=== PATIENT | male | born 1965 | race Caucasian/White ===

== ENCOUNTER → 2018-06-16 | Emergency (ER) | payer MEDICAID ==
[~2018-06-16] VITALS: Ht 175.3 cm; Wt 81.8 kg
[~2018-06-16] MED LIST: LOPE2CAP PO; ONDA4TAB6 PO; PRED20TA PO; medical marijuana
[2018-06-16 17:06] VITALS: BP 119/78
[2018-06-16 18:37] LABS: BASOPHILS % (AUTO) 0.3 % (0-1); EOSINOPHILS # (AUTO) 0.1 X10'3 (0-0.9); EOSINOPHILS % (AUTO) 1.6 % (0-6); HEMATOCRIT 40.7 % (42.0-52.0); LYMPHOCYTES # (AUTO) 3.1 X10'3 (1.1-4.8); LYMPHOCYTES % (AUTO) 42.5 % (21-51); MEAN CORPUSCULAR HEMOGLOBIN 31.8 PG (27.0-31.0); MEAN CORPUSCULAR HGB CONC 34.4 g/dL (33.0-36.5); MEAN CORPUSCULAR VOLUME 92.4 FL (78-98); MEAN PLATELET VOLUME 8.8 FL (7.4-10.4); MONOCYTES # (AUTO) 0.5 X10'3 (0-0.9); MONOCYTES % (AUTO) 6.8 % (2-12); NEUTROPHILS # (AUTO) 3.6 X10'3 (1.8-7.7); NEUTROPHILS % (AUTO) 48.8 % (42-75); PLATELET COUNT 201 X10'3 (140-440); RED BLOOD COUNT 4.41 X10'6 (4.70-6.10); RED CELL DISTRIBUTION WIDTH 12.7 % (11.5-14.5); WHITE BLOOD COUNT 7.4 X10'3 (4.5-11.0)
[2018-06-16 18:51] LABS: ALANINE AMINOTRANSFERASE 42 U/L (12-78); ALBUMIN 3.8 G/DL (3.4-5.0); ALBUMIN/GLOBULIN RATIO 1.1 (1.1-1.5); ALKALINE PHOSPHATASE 89 IU/L (46-116); ANION GAP 10 (8-16); ASPARTATE AMINO TRANSFERASE 22 U/L (10-37); BILIRUBIN,TOTAL 0.5 MG/DL (0.1-1.0); BLOOD UREA NITROGEN 18 MG/DL (7-18); BUN/CREATININE RATIO 19.6 (5.4-32.0); CALCIUM 8.8 MG/DL (8.5-10.1); CHLORIDE 104 MMOL/L (99-107); CREATININE 0.92 MG/DL (0.60-1.10); GLUCOSE 94 MG/DL (70-104); POTASSIUM 4.1 MMOL/L (3.5-5.1); SODIUM 140 MMOL/L (135-145); TOTAL CARBON DIOXIDE 26.3 MMOL/L (24-32); TOTAL PROTEIN 7.3 G/DL (6.4-8.2); eGFR 86 ML/MIN
== END | disposition home or self-care (01) ==
LOC: ER 16:38
DX: K92.1 Melena (principal); R42 Dizziness and giddiness; R10.84 Generalized abdominal pain; J45.909 Unspecified asthma, uncomplicated; G89.29 Other chronic pain; F12.90 Cannabis use, unspecified, uncomplicated; Z88.5 Allergy status to narcotic agent; Z79.899 Other long term (current) drug therapy
CPT/HCPCS: 36415; 80053; 85025; 99283

== ENCOUNTER 2018-08-13 14:58 | Emergency (ER) | payer MEDICAID ==
[~2018-08-13] VITALS: Ht 182.9 cm; Wt 68.2 kg
[~2018-08-13 14:58] MED LIST changes: -PRED20TA PO
[2018-08-13 15:37] LABS: BASOPHILS % (AUTO) 0.3 % (0-1); EOSINOPHILS # (AUTO) 0.1 X10'3 (0-0.9); EOSINOPHILS % (AUTO) 1.5 % (0-6); HEMOGLOBIN 12.4 g/dl (14.0-17.9); LYMPHOCYTES # (AUTO) 2.6 X10'3 (1.1-4.8); LYMPHOCYTES % (AUTO) 33.8 % (21-51); MEAN CORPUSCULAR HEMOGLOBIN 30.7 PG (27.0-31.0); MEAN CORPUSCULAR HGB CONC 34.4 g/dL (33.0-36.5); MEAN CORPUSCULAR VOLUME 89.4 FL (78-98); MEAN PLATELET VOLUME 8.1 FL (7.4-10.4); MONOCYTES # (AUTO) 0.4 X10'3 (0-0.9); NEUTROPHILS # (AUTO) 4.5 X10'3 (1.8-7.7); NEUTROPHILS % (AUTO) 59.4 % (42-75); PLATELET COUNT 346 X10'3 (140-440); RED BLOOD COUNT 4.02 X10'6 (4.70-6.10); RED CELL DISTRIBUTION WIDTH 12.8 % (11.5-14.5); WHITE BLOOD COUNT 7.6 X10'3 (4.5-11.0)
[2018-08-13 15:44] LABS: CLARITY,URINE CLOUDY (Clear); COLOR,URINE YELLOW (Yellow); GLUCOSE, URINE NEGATIVE (Neg); KETONES,URINE NEGATIVE (Neg); LEUKOCYTE ESTERASE ,URINE TRACE (Neg); NITRITES, URINE POSITIVE (Neg); OCCULT BLOOD,URINE LARGE (Neg); PH,URINE 5.5 (4.8-8.0); PROTEIN,URINE 100 mg/dl (Neg); UROBILINOGEN,URINE 0.2 E.U/dL (0.2-1.0)
[2018-08-13 15:51] LABS: ALANINE AMINOTRANSFERASE 81 U/L (12-78); ALBUMIN 3.4 G/DL (3.4-5.0); ALBUMIN/GLOBULIN RATIO 0.8 (1.1-1.5); ALKALINE PHOSPHATASE 155 IU/L (46-116); ANION GAP 7 (8-16); ASPARTATE AMINO TRANSFERASE 28 U/L (10-37); BILIRUBIN,TOTAL 0.3 MG/DL (0.1-1.0); BLOOD UREA NITROGEN 18 MG/DL (7-18); BUN/CREATININE RATIO 21.4 (5.4-32.0); CALCIUM 9.4 MG/DL (8.5-10.1); CHLORIDE 104 MMOL/L (99-107); CREATININE 0.84 MG/DL (0.60-1.10); GLUCOSE 95 MG/DL (70-104); POTASSIUM 4.1 MMOL/L (3.5-5.1); SODIUM 139 MMOL/L (135-145); TOTAL PROTEIN 7.6 G/DL (6.4-8.2); eGFR > 90 ML/MIN
[2018-08-13 15:51] LABS: UA COLLECTION TYPE OTHER
[2018-08-13 15:52] LABS: BACTERIA,URINE NONE SEEN /HPF (Neg); RBC,URINE 20-50 /HPF (0-2)
[2018-08-13 15:53] LABS: MUCUS STRANDS FEW /LPF (Neg); SQUAMOUS EPITHELIAL CELL,UR NONE SEEN /LPF (FEW); URIC ACID CRYSTALS 1+ /HPF (NEGATIVE); YEAST MANY /HPF (NEGATIVE)
[2018-08-13] MEDS ORDERED: SULF1TAB49 PO (16:55)
[2018-08-13 17:15] VITALS: BP 104/58
== END 2018-08-13 17:18 | disposition home or self-care (01) ==
LOC: ER 14:59
DX: K91.89 Other postprocedural complications and disorders of digestive system (principal); K63.0 Abscess of intestine; N39.0 Urinary tract infection, site not specified; J45.909 Unspecified asthma, uncomplicated; G89.29 Other chronic pain; F12.90 Cannabis use, unspecified, uncomplicated; Z98.890 Other specified postprocedural states; Z88.5 Allergy status to narcotic agent; Z79.899 Other long term (current) drug therapy; Z86.73 Personal history of transient ischemic attack (TIA), and cerebral infarction without residual deficits
CPT/HCPCS: 36415; 80053; 81001; 85025; 87088; 99284

== ENCOUNTER 2018-10-14 11:10 | Day surgery (SDC) | payer MEDICAID ==
[~2018-10-14] VITALS: Ht 175.3 cm; Wt 66.9 kg
[2018-10-14] MEDS ORDERED: HYDR-3972 PO (11:42)
[2018-10-14] MEDS ORDERED: CIPR500T5 PO (11:42)
[2018-10-14] MEDS ORDERED: FLUO1VIA8 IV (11:42)
[2018-10-14 11:44] VITALS: BP 121/58
[2018-10-14] MEDS ORDERED: HYDROcodone/acetaminophen 10/325mg tab PO ONE (13:55)
[2018-10-14] MEDS ORDERED: iohexol 300 MG/1 ML 50ml polymer ONE (15:00)
[2018-10-14] MEDS ORDERED: heparin sodium, porcine/PF 100unit/ml 5ML syringe ONE (15:17)
[2018-10-14 15:25] VITALS: BP 120/60
== END 2018-10-14 15:55 | disposition home or self-care (01) ==
LOC: SSTAY O 11:10
PROVIDERS: ATTEND Radiology Diagnostic Radiology
DX: T82.9XXA Unspecified complication of cardiac and vascular prosthetic device, implant and graft, initial encounter (principal); C20 Malignant neoplasm of rectum; F31.9 Bipolar disorder, unspecified; F41.9 Anxiety disorder, unspecified; Z98.890 Other specified postprocedural states; Z79.899 Other long term (current) drug therapy
CPT/HCPCS: 76000; J1642; Q9967

== ENCOUNTER 2019-05-16 20:20 | Inpatient (IN) | payer MEDICAID ==
[~2019-05-16] VITALS: Ht 175.3 cm; Wt 74.1 kg
[~2019-05-16 20:20] MED LIST changes: +CIPR500T5 PO; +FLUO1VIA8 IV; +HYDR-3972 PO; -LOPE2CAP PO; -ONDA4TAB6 PO; -medical marijuana
[2019-05-16 21:18] LABS: BASOPHILS % (AUTO) 0.4 % (0-1); EOSINOPHILS # (AUTO) 0.2 X10'3 (0-0.9); EOSINOPHILS % (AUTO) 3.1 % (0-6); LYMPHOCYTES # (AUTO) 0.9 X10'3 (1.1-4.8); LYMPHOCYTES % (AUTO) 17.5 % (21-51); MEAN CORPUSCULAR HEMOGLOBIN 31.4 PG (27.0-31.0); MEAN CORPUSCULAR HGB CONC 34.1 g/dL (33.0-36.5); MEAN CORPUSCULAR VOLUME 92.1 FL (78-98); MEAN PLATELET VOLUME 7.7 FL (7.4-10.4); MONOCYTES # (AUTO) 0.5 X10'3 (0-0.9); MONOCYTES % (AUTO) 9.6 % (2-12); NEUTROPHILS # (AUTO) 3.8 X10'3 (1.8-7.7); NEUTROPHILS % (AUTO) 69.4 % (42-75); PLATELET COUNT 228 X10'3 (140-440); RED BLOOD COUNT 4.13 X10'6 (4.70-6.10); RED CELL DISTRIBUTION WIDTH 13.8 % (11.5-14.5); WHITE BLOOD COUNT 5.4 X10'3 (4.5-11.0)
[2019-05-16 21:30] LABS: ALANINE AMINOTRANSFERASE 40 U/L (12-78); ALBUMIN 3.6 G/DL (3.4-5.0); ALKALINE PHOSPHATASE 125 IU/L (46-116); ANION GAP 9 (8-16); ASPARTATE AMINO TRANSFERASE 31 U/L (10-37); BILIRUBIN,TOTAL 0.6 MG/DL (0.1-1.0); BLOOD UREA NITROGEN 14 MG/DL (7-18); BUN/CREATININE RATIO 13.1 (5.4-32.0); CALCIUM 8.6 MG/DL (8.5-10.1); CHLORIDE 105 MMOL/L (99-107); CREATININE 1.07 MG/DL (0.60-1.10); GLUCOSE 94 MG/DL (70-104); LIPASE 522 U/L (73-393); POTASSIUM 3.9 MMOL/L (3.5-5.1); SODIUM 140 MMOL/L (135-145); TOTAL CARBON DIOXIDE 25.7 MMOL/L (24-32); TOTAL PROTEIN 7.2 G/DL (6.4-8.2); eGFR 72 ML/MIN
--- NOTE | 2019-05-16 23:20 | NUR ---
Phoned [facility], ICU and spoke with the charge nurse regarding the need to collect urine from the nephrostomy tube. The urine in the collection bag is contaminated and will need a new collection bag. The urine leg bags available in the ED will not connect to the patient's nephrostomy tube. AMOS Kerns is going to the basement to attempt to locate the correct specimen drainage bag with the lure lock connection for the nephrostomy tube.
[2019-05-16] MEDS ORDERED: PEG 3350/Na sulf,bicarb,Cl/KCl oral sol 4 liter bottle PO ONE (23:25)
[2019-05-16] MEDS ORDERED: IBUP-1984 PO (23:44)
[2019-05-16] MEDS ORDERED: OXYC10TA47 (23:44)
[2019-05-17] VITALS (15 sets, daily range): BP systolic 110–147; BP diastolic 60–80
--- NOTE | 2019-05-17 00:13 | NUR ---
Jess solis in [facility] - 05/17/19 at 0013 by MARCELLA ULTRA SOUND AT BEDSIDE
[2019-05-17] MEDS ORDERED: potassium CL 10mEq/100ml bag 100 ML IV PRN ×2 (00:50)
[2019-05-17] MEDS ORDERED: magnesium 2GM in 50ml NS 50 ML IV PRN (00:50)
[2019-05-17] MEDS ORDERED: magnesium 4gm in 100ml NS 100 ML IV PRN (00:50)
[2019-05-17] MEDS ORDERED: acetaminophen 325mg tablet PO PRN (00:50)
[2019-05-17] MEDS ORDERED: HYDROmorphone inj. 0.5 MG/0.5 ML DISP.SYRIN IV PRN ×3 (00:50→17:55)
[2019-05-17] MEDS ORDERED: mag hydrox/Alum hydrox/simeth 30ml oral suspension PO PRN (00:50)
[2019-05-17] MEDS ORDERED: potassium Cl 20 mEq SR tablet PO PRN ×2 (00:50)
[2019-05-17 01:32] LABS: CLARITY,URINE CLOUDY (Clear); COLOR,URINE STRAW (Yellow); GLUCOSE, URINE NEGATIVE (Neg); KETONES,URINE NEGATIVE (Neg); LEUKOCYTE ESTERASE ,URINE LARGE (Neg); NITRITES, URINE POSITIVE (Neg); OCCULT BLOOD,URINE LARGE (Neg); PROTEIN,URINE 30 mg/dl (Neg); UROBILINOGEN,URINE 0.2 E.U/dL (0.2-1.0)
[2019-05-17 01:38] LABS: UA COLLECTION TYPE OTHER
[2019-05-17 01:40] LABS: BACTERIA,URINE FEW /HPF (Neg); WBC,URINE TNTC /HPF (0-4)
[2019-05-17 01:41] LABS: SQUAMOUS EPITHELIAL CELL,UR NONE SEEN /LPF (FEW); WBC CLUMPS,URINE FEW /HPF (NEGATIVE)
[2019-05-17] MEDS: HYDROmorphone 1 mg/ml syringe IV PRN ×5 (02:33→21:45)
[2019-05-17] MEDS: ondansetron/PF 4mg/2ml inj IV PRN ×2 (02:33→11:36)
[2019-05-17] MEDS: normal saline 1000ml 1,000 ML IV SCH ×3 (02:34→21:46)
--- NOTE | 2019-05-17 05:13 | NUR ---
Patient valuable stored in ER. Bryant arrived this morning to brass pickler.
--- NOTE | 2019-05-17 07:05 | NUR ---
Problems reprioritized. Patient report given, questions answered & plan of care reviewed with TICO. Addendum: 05/17/19 at 0706 by Buster Pleitez RN Amended: Links added.
[2019-05-17] MEDS: enoxaparin 40mg/0.4ml syringe SQ SCH (08:00)
[2019-05-17] MEDS: K and/or MAG REPLACEMENT MC SCH ×2 (08:00→20:00)
[2019-05-17] MEDS ORDERED: ceFOXitin 2 GM ADDVANTGE BAG 50 ML IV ONE (17:49)
[2019-05-17] MEDS ORDERED: ringers solution, lacted 1,000 ML IV SCH ×2 (17:51→19:33)
[2019-05-17] MEDS ORDERED: hydrALAZINE 20mg/ml inj. IV PRN (17:55)
[2019-05-17] MEDS ORDERED: ondansetron/PF 4mg/2ml inj IV PRN ×2 (17:55→19:35)
[2019-05-17] MEDS ORDERED: fentaNYL/PF 50MCG/1 ML 2ML syringe IV PRN ×2 (17:55)
[2019-05-17] MEDS ORDERED: labetalol 20mg/4ml (5mg/ml) syringe IV PRN (17:55)
[2019-05-17] MEDS ORDERED: rocuronium 10mg/ml inj IV ONE (18:03)
[2019-05-17] MEDS ORDERED: propofol inj 20 ML IV ONE (18:03)
[2019-05-17] MEDS ORDERED: LIDOcaine 2% (20mg/ml) 5ml vial ONE (18:03)
[2019-05-17] MEDS ORDERED: ondansetron/PF 4mg/2ml inj ONE (18:04)
[2019-05-17] MEDS ORDERED: glycopyrrolate 0.2mg/ml inj ONE (18:30)
[2019-05-17] MEDS ORDERED: neostigmine methylsulfate 1 MG/ML 10ml vial ONE (18:30)
[2019-05-17] MEDS ORDERED: dexamethasone sod phosphate 10mg/ml inj ONE (18:30)
[2019-05-17] MEDS ORDERED: sevoflurane 250ml liquid IH ONE (18:30)
[2019-05-17] MEDS ORDERED: midazolam 2 mg/2 ml injection ONE (18:32)
[2019-05-17] MEDS ORDERED: fentaNYL/PF 50MCG/1 ML 2ML syringe ONE (18:32)
[2019-05-17] MEDS ORDERED: BUPIVAcaine/PF 2.5 mg/ml (0.25%) 30ml vial ONE (19:14)
[2019-05-17] MEDS ORDERED: proCHLORperazine 10 MG/2 ml inj IV PRN (19:35)
[2019-05-17] MEDS ORDERED: meperidine/PF 25mg/ml syringe IV PRN ×3 (19:35)
--- NOTE | 2019-05-17 19:45 | NUR ---
Received from OR via BED , accompanied by Anesthesiologist DR ESTRADA and report given by Anesthesiolgist. PATIENT WAKING UP, DENIES PAIN, V/S WNL, NEUROVASCULAR CHECKS INTACT, 20G PIV LUE, SCD ON, UROSTOMY RIGHT SIDE CDI WITH CLEAR YELLOW URINE IN BAG AND COLOSTOMY BAG FROM PERISTOMAL REPAIR CDI WITH PINK REDISH STOMA.
--- NOTE | 2019-05-17 20:25 | NUR ---
PATIENT WAKING UP, STATES PAIN 4/10, V/S WNL, NEUROVASCULAR CHECKS INTACT, 20G PIV LUE FOUND TO BE INFILTRATED UPON ARRIVAL TO ROOM AND IVF TURNED OFF AND RECIEVING RN NOTIFIED, SCD ON, UROSTOMY RIGHT SIDE CDI WITH CLEAR YELLOW URINE IN BAG AND COLOSTOMY BAG FROM PERISTOMAL REPAIR CDI WITH PINK REDISH STOMA. PATIENT TAKEN TO 350B WITH ALL BELONGINGS AND HOOKED UP TO MONITORS IN ROOM AND REPORT GIVEN TO RN WHO HAS TAKEN OVER PATIENT CARE.
--- NOTE | 2019-05-17 23:20 | NUR ---
Pt c/o severe pain 10/10 to right side at ostomy insertion point. Attempted to ambulate with patient to resolve gas related pain from surgery, walked about 50 feet before patient began to complain about severe pain to ostomy site and no relief of pain to urostomy site. Returned patient to bed. Spoke to Dr. Mays; states site was not accessed during surgical procedure. Obtained order for dilaudid CADD, Clear liquid diet, and throat lozenge for sore throat.
[2019-05-17] MEDS ORDERED: naloxone 0.4 mg/ml inj IV PRN (23:25)
[2019-05-17] MEDS ORDERED: CADD PCA waste documentation MC PRN (23:25)
[2019-05-18] VITALS: BP 110/60
[2019-05-18] MEDS: HYDROmorphone/NS 1 mg/ml CADD 50 ML IV SCH ×8 (00:14→13:00)
[2019-05-18 00:45] VITALS: BP 112/61
[2019-05-18] MEDS: benzocaine/menthol oral lozeng 1 EACH BOX MM PRN ×4 (01:20→23:00)
--- NOTE | 2019-05-18 06:29 | NUR ---
Problems reprioritized. Patient report given, questions answered & plan of care reviewed with VINICIO Cisneros.
[2019-05-18 06:36] LABS: ALANINE AMINOTRANSFERASE 37 U/L (12-78); ALBUMIN 3.6 G/DL (3.4-5.0); ALBUMIN/GLOBULIN RATIO 0.9 (1.1-1.5); ALKALINE PHOSPHATASE 148 IU/L (46-116); ANION GAP 10 (8-16); ASPARTATE AMINO TRANSFERASE 29 U/L (10-37); BILIRUBIN,TOTAL 0.9 MG/DL (0.1-1.0); BLOOD UREA NITROGEN 15 MG/DL (7-18); BUN/CREATININE RATIO 13.6 (5.4-32.0); CHLORIDE 103 MMOL/L (99-107); GLUCOSE 126 MG/DL (70-104); MAGNESIUM 2.1 MG/DL (1.5-2.4); POTASSIUM 4.5 MMOL/L (3.5-5.1); SODIUM 137 MMOL/L (135-145); TOTAL CARBON DIOXIDE 24.4 MMOL/L (24-32); TOTAL PROTEIN 7.5 G/DL (6.4-8.2); eGFR 70 ML/MIN
[2019-05-18] MEDS: normal saline 1000ml 1,000 ML IV SCH ×2 (07:17→18:15)
[2019-05-18] MEDS: K and/or MAG REPLACEMENT MC SCH ×2 (07:32→20:00)
[2019-05-18 08:00] VITALS: BP 91/55
[2019-05-18] MEDS: enoxaparin 40mg/0.4ml syringe SQ SCH (08:00)
--- NOTE | 2019-05-18 09:45 | NUR ---
pt states [facility] Rx him Cipro several days ago to prevent infection at colostomy site. Pt states he only took 2 days worth of abx before this hospital admission. Pt concerned about getting his abx to prevent infection. Notified Dr. Reed and ordered to continue Cipro dosage. Order placed.
[2019-05-18] MEDS: ciprofloxacin 250mg tablet PO SCH ×2 (10:50→19:04)
[2019-05-18 11:40] LABS: BASOPHILS % (AUTO) 0.3 % (0-1); EOSINOPHILS % (AUTO) 0 % (0-6); HEMATOCRIT 35.9 % (42.0-52.0); HEMOGLOBIN 12.3 g/dl (14.0-17.9); LYMPHOCYTES # (AUTO) 0.6 X10'3 (1.1-4.8); MEAN CORPUSCULAR HEMOGLOBIN 31.3 PG (27.0-31.0); MEAN CORPUSCULAR HGB CONC 34.2 g/dL (33.0-36.5); MEAN CORPUSCULAR VOLUME 91.6 FL (78-98); MEAN PLATELET VOLUME 7.9 FL (7.4-10.4); MONOCYTES # (AUTO) 0.5 X10'3 (0-0.9); NEUTROPHILS # (AUTO) 6.5 X10'3 (1.8-7.7); NEUTROPHILS % (AUTO) 84.7 % (42-75); PLATELET COUNT 215 X10'3 (140-440); RED BLOOD COUNT 3.92 X10'6 (4.70-6.10); RED CELL DISTRIBUTION WIDTH 13.6 % (11.5-14.5); WHITE BLOOD COUNT 7.7 X10'3 (4.5-11.0)
[2019-05-18 12:00] VITALS: BP 111/71
[2019-05-18] MEDS: enoxaparin 30mg/0.3ml syringe SUBCUT SCH (13:25)
[2019-05-18] MEDS: oxyCODONE/APAP 10/325mg tablet PO PRN ×3 (14:18→23:27)
--- NOTE | 2019-05-18 14:26 | NUR ---
pt refusing Lovenox shots, pt aware of risks of refusal. States he will get up and walk around, SCD's in place, and pt lumping ankles and feet while in bed.
[2019-05-18] MEDS ORDERED: morphine 4 MG/ML inj SYRINge IV PRN (15:05)
[2019-05-18] MEDS ORDERED: ondansetron/PF 4mg/2ml inj IV PRN (15:05)
[2019-05-18] MEDS ORDERED: labetalol 20mg/4ml (5mg/ml) syringe IV PRN (15:05)
[2019-05-18] MEDS ORDERED: morphine 2 MG/ML inj. syringe IV PRN (15:05)
[2019-05-18] MEDS ORDERED: fentaNYL/PF 50MCG/1 ML 2ML syringe IV PRN ×2 (15:05)
[2019-05-18] MEDS ORDERED: hydrALAZINE 20mg/ml inj. IV PRN (15:05)
[2019-05-18] MEDS ORDERED: ringers solution, lacted 1,000 ML IV SCH (15:05)
[2019-05-18 19:00] VITALS: BP 109/57
[2019-05-18] MEDS: lactobacillus rhamnosus 10,000 MMU CELLS/CAPSULE PO SCH (19:04)
[2019-05-19] VITALS: BP 112/55
[2019-05-19] MEDS: benzocaine/menthol oral lozeng 1 EACH BOX MM PRN ×4 (01:09→22:16)
[2019-05-19] MEDS: normal saline 1000ml 1,000 ML IV SCH ×4 (02:49→22:10)
[2019-05-19] MEDS: oxyCODONE/APAP 10/325mg tablet PO PRN ×4 (04:58→19:02)
[2019-05-19 06:02] LABS: BASOPHILS % (AUTO) 0.2 % (0-1); EOSINOPHILS % (AUTO) 0.2 % (0-6); HEMATOCRIT 38.1 % (42.0-52.0); LYMPHOCYTES # (AUTO) 0.8 X10'3 (1.1-4.8); LYMPHOCYTES % (AUTO) 13.5 % (21-51); MEAN CORPUSCULAR HEMOGLOBIN 31.2 PG (27.0-31.0); MEAN CORPUSCULAR HGB CONC 34.1 g/dL (33.0-36.5); MEAN CORPUSCULAR VOLUME 91.4 FL (78-98); MEAN PLATELET VOLUME 8.3 FL (7.4-10.4); MONOCYTES # (AUTO) 0.5 X10'3 (0-0.9); MONOCYTES % (AUTO) 8.5 % (2-12); NEUTROPHILS # (AUTO) 4.6 X10'3 (1.8-7.7); NEUTROPHILS % (AUTO) 77.6 % (42-75); PLATELET COUNT 182 X10'3 (140-440); RED BLOOD COUNT 4.17 X10'6 (4.70-6.10); RED CELL DISTRIBUTION WIDTH 13.8 % (11.5-14.5); WHITE BLOOD COUNT 5.9 X10'3 (4.5-11.0)
[2019-05-19 06:33] LABS: ALANINE AMINOTRANSFERASE 29 U/L (12-78); ALBUMIN 3.2 G/DL (3.4-5.0); ALBUMIN/GLOBULIN RATIO 0.9 (1.1-1.5); ALKALINE PHOSPHATASE 109 IU/L (46-116); ANION GAP 7 (8-16); ASPARTATE AMINO TRANSFERASE 24 U/L (10-37); BILIRUBIN,TOTAL 0.7 MG/DL (0.1-1.0); BLOOD UREA NITROGEN 11 MG/DL (7-18); BUN/CREATININE RATIO 11.5 (5.4-32.0); CALCIUM 8.5 MG/DL (8.5-10.1); CHLORIDE 107 MMOL/L (99-107); CREATININE 0.96 MG/DL (0.60-1.10); GLUCOSE 95 MG/DL (70-104); POTASSIUM 3.8 MMOL/L (3.5-5.1); SODIUM 142 MMOL/L (135-145); TOTAL CARBON DIOXIDE 27.6 MMOL/L (24-32); TOTAL PROTEIN 6.7 G/DL (6.4-8.2); eGFR 82 ML/MIN
[2019-05-19] MEDS: K and/or MAG REPLACEMENT MC SCH ×2 (07:02→19:17)
[2019-05-19 07:09] VITALS: BP 110/55
[2019-05-19] MEDS: lactobacillus rhamnosus 10,000 MMU CELLS/CAPSULE PO SCH ×2 (07:54→19:19)
[2019-05-19] MEDS: ciprofloxacin 250mg tablet PO SCH (07:55)
[2019-05-19] MEDS: enoxaparin 30mg/0.3ml syringe SUBCUT SCH (08:00)
[2019-05-19] MEDS: levoFLOXACIN 750MG TABLET PO SCH (11:04)
[2019-05-19] MEDS: HYDROmorphone inj. 0.5 MG/0.5 ML DISP.SYRIN IV PRN ×3 (11:04→22:09)
[2019-05-19 12:00] VITALS: BP 119/60
[2019-05-19 18:00] VITALS: BP 131/74
--- NOTE | 2019-05-19 18:17 | NUR ---
Problems reprioritized. Patient report given, questions answered & plan of care reviewed with PRUDENCE RN.
--- NOTE | 2019-05-19 18:30 | NUR ---
Patient in room [facility]. I have received report from Nicole MOONEY and had the opportunity to ask questions and assume patient care. Patient is having dinner and denies having pain.
[2019-05-20 00:05] VITALS: BP 121/63
[2019-05-20] MEDS: oxyCODONE/APAP 10/325mg tablet PO PRN ×4 (01:23→18:49)
[2019-05-20] MEDS: benzocaine/menthol oral lozeng 1 EACH BOX MM PRN ×4 (01:25→21:35)
[2019-05-20] MEDS: HYDROmorphone inj. 0.5 MG/0.5 ML DISP.SYRIN IV PRN ×2 (05:48→21:35)
[2019-05-20 05:56] LABS: BASOPHILS % (AUTO) 0.1 % (0-1); EOSINOPHILS # (AUTO) 0.1 X10'3 (0-0.9); EOSINOPHILS % (AUTO) 1.1 % (0-6); HEMATOCRIT 37.2 % (42.0-52.0); HEMOGLOBIN 12.7 g/dl (14.0-17.9); LYMPHOCYTES # (AUTO) 0.7 X10'3 (1.1-4.8); LYMPHOCYTES % (AUTO) 13.9 % (21-51); MEAN CORPUSCULAR HEMOGLOBIN 31.2 PG (27.0-31.0); MEAN CORPUSCULAR HGB CONC 34.2 g/dL (33.0-36.5); MEAN CORPUSCULAR VOLUME 91.3 FL (78-98); MEAN PLATELET VOLUME 8.3 FL (7.4-10.4); MONOCYTES # (AUTO) 0.4 X10'3 (0-0.9); MONOCYTES % (AUTO) 7.5 % (2-12); NEUTROPHILS # (AUTO) 3.9 X10'3 (1.8-7.7); NEUTROPHILS % (AUTO) 77.4 % (42-75); PLATELET COUNT 174 X10'3 (140-440); RED BLOOD COUNT 4.08 X10'6 (4.70-6.10); WHITE BLOOD COUNT 5.1 X10'3 (4.5-11.0)
--- NOTE | 2019-05-20 06:16 | NUR ---
Problems reprioritized. Patient report given, questions answered & plan of care reviewed with Nicole MOONEY.
[2019-05-20 06:26] LABS: ALANINE AMINOTRANSFERASE 28 U/L (12-78); ALBUMIN/GLOBULIN RATIO 0.8 (1.1-1.5); ALKALINE PHOSPHATASE 112 IU/L (46-116); ANION GAP 6 (8-16); ASPARTATE AMINO TRANSFERASE 24 U/L (10-37); BILIRUBIN,TOTAL 0.6 MG/DL (0.1-1.0); BLOOD UREA NITROGEN 9 MG/DL (7-18); BUN/CREATININE RATIO 10.1 (5.4-32.0); CALCIUM 8.5 MG/DL (8.5-10.1); CHLORIDE 104 MMOL/L (99-107); CREATININE 0.89 MG/DL (0.60-1.10); GLUCOSE 90 MG/DL (70-104); MAGNESIUM 1.8 MG/DL (1.5-2.4); POTASSIUM 3.6 MMOL/L (3.5-5.1); SODIUM 138 MMOL/L (135-145); TOTAL CARBON DIOXIDE 28.1 MMOL/L (24-32); TOTAL PROTEIN 6.9 G/DL (6.4-8.2); eGFR 89 ML/MIN
[2019-05-20] MEDS: K and/or MAG REPLACEMENT MC SCH ×2 (06:39→20:00)
--- NOTE | 2019-05-20 06:48 | NUR ---
Patient in room [facility]. I have received report from LUCHO MOONEY and had the opportunity to ask questions and assume patient care.
[2019-05-20 07:00] VITALS: BP 110/59
[2019-05-20] MEDS: lactobacillus rhamnosus 10,000 MMU CELLS/CAPSULE PO SCH ×2 (07:12→20:18)
[2019-05-20] MEDS: normal saline 1000ml 1,000 ML IV SCH (07:13)
[2019-05-20] MEDS: enoxaparin 30mg/0.3ml syringe SUBCUT SCH (07:19)
[2019-05-20] MEDS ORDERED: OXYC-511 PO (09:52)
[2019-05-20] MEDS ORDERED: HYDR4TAB45 PO (09:52)
[2019-05-20] MEDS ORDERED: LEVO750T46 PO (09:52)
[2019-05-20] MEDS: levoFLOXACIN 750MG TABLET PO SCH (11:30)
[2019-05-20 18:00] VITALS: BP 113/56
--- NOTE | 2019-05-20 18:29 | NUR ---
Problems reprioritized. Patient report given, questions answered & plan of care reviewed with PRUDENCE RN.
[2019-05-21] VITALS: BP 129/59
[2019-05-21] MEDS: oxyCODONE/APAP 10/325mg tablet PO PRN ×2 (00:01→04:32)
[2019-05-21 06:19] LABS: BASOPHILS % (AUTO) 0.2 % (0-1); EOSINOPHILS # (AUTO) 0.1 X10'3 (0-0.9); EOSINOPHILS % (AUTO) 1.7 % (0-6); HEMATOCRIT 38.5 % (42.0-52.0); HEMOGLOBIN 13.2 g/dl (14.0-17.9); LYMPHOCYTES # (AUTO) 0.6 X10'3 (1.1-4.8); LYMPHOCYTES % (AUTO) 15.1 % (21-51); MEAN CORPUSCULAR HEMOGLOBIN 31.4 PG (27.0-31.0); MEAN CORPUSCULAR HGB CONC 34.4 g/dL (33.0-36.5); MEAN CORPUSCULAR VOLUME 91.2 FL (78-98); MEAN PLATELET VOLUME 8.4 FL (7.4-10.4); MONOCYTES # (AUTO) 0.3 X10'3 (0-0.9); MONOCYTES % (AUTO) 9.4 % (2-12); NEUTROPHILS # (AUTO) 2.7 X10'3 (1.8-7.7); NEUTROPHILS % (AUTO) 73.6 % (42-75); PLATELET COUNT 183 X10'3 (140-440); RED BLOOD COUNT 4.22 X10'6 (4.70-6.10); RED CELL DISTRIBUTION WIDTH 13.6 % (11.5-14.5); WHITE BLOOD COUNT 3.7 X10'3 (4.5-11.0)
--- NOTE | 2019-05-21 06:27 | NUR ---
Patient in room [facility]. I have received report from LUCHO MOONEY and had the opportunity to ask questions and assume patient care.
--- NOTE | 2019-05-21 06:30 | NUR ---
Problems reprioritized. Patient report given, questions answered & plan of care reviewed with Nicole MOONEY.
[2019-05-21 06:54] LABS: ALANINE AMINOTRANSFERASE 50 U/L (12-78); ALBUMIN 3.2 G/DL (3.4-5.0); ALBUMIN/GLOBULIN RATIO 0.8 (1.1-1.5); ALKALINE PHOSPHATASE 151 IU/L (46-116); ANION GAP 8 (8-16); ASPARTATE AMINO TRANSFERASE 42 U/L (10-37); BILIRUBIN,TOTAL 0.6 MG/DL (0.1-1.0); BLOOD UREA NITROGEN 10 MG/DL (7-18); BUN/CREATININE RATIO 10.5 (5.4-32.0); CALCIUM 8.8 MG/DL (8.5-10.1); CHLORIDE 102 MMOL/L (99-107); CREATININE 0.95 MG/DL (0.60-1.10); GLUCOSE 91 MG/DL (70-104); MAGNESIUM 1.9 MG/DL (1.5-2.4); POTASSIUM 3.5 MMOL/L (3.5-5.1); SODIUM 138 MMOL/L (135-145); TOTAL CARBON DIOXIDE 27.9 MMOL/L (24-32); TOTAL PROTEIN 7.4 G/DL (6.4-8.2); eGFR 83 ML/MIN
[2019-05-21 07:00] VITALS: BP 109/67
[2019-05-21] MEDS: K and/or MAG REPLACEMENT MC SCH (08:00)
[2019-05-21] MEDS: enoxaparin 30mg/0.3ml syringe SUBCUT SCH (08:00)
[2019-05-21] MEDS: lactobacillus rhamnosus 10,000 MMU CELLS/CAPSULE PO SCH (08:18)
[2019-05-21] MEDS: HYDROmorphone inj. 0.5 MG/0.5 ML DISP.SYRIN IV PRN (08:31)
--- NOTE | 2019-05-21 10:15 | NUR ---
PT DISCHARGED IN STABLE CONDITION. LEFT FACILITY IN PRIVATE VEHICLE WITH FAMILY. IV DC CANULA INTACT. ALL BELONGINGS IN HAND INCLUDING RX FOR PERCOCET AND DILAUDID. FOLLOW UP INSTRUCTIONS GIVEN, ALL QUESTIONS ANSWERED. Addendum: 05/21/19 at 1045 by Nina Aden RN Amended: Links added.
== END 2019-05-21 10:00 | disposition home or self-care (01) | DRG 227 ==
LOC: ER 20:21 → ED HOLD 05-17 00:49 → SUR 3N 05-17 02:01
PROVIDERS: ADMIT Family Medicine; ATTEND Internal Medicine
PROC: 0WQF0ZZ Repair Abdominal Wall, Open Approach (ICD-10-PCS; principal; 2019-05-18)
DX: K43.5 Parastomal hernia without obstruction or gangrene (principal); K94.03 Colostomy malfunction; F12.90 Cannabis use, unspecified, uncomplicated; F32.9 Major depressive disorder, single episode, unspecified; F41.9 Anxiety disorder, unspecified; Z88.0 Allergy status to penicillin; Z88.1 Allergy status to other antibiotic agents; I73.9 Peripheral vascular disease, unspecified; Y84.8 Other medical procedures as the cause of abnormal reaction of the patient, or of later complication, without mention of misadventure at the time of the procedure; Y82.8 Other medical devices associated with adverse incidents; J01.90 Acute sinusitis, unspecified; G89.29 Other chronic pain; M54.9 Dorsalgia, unspecified; Z86.73 Personal history of transient ischemic attack (TIA), and cerebral infarction without residual deficits; J45.909 Unspecified asthma, uncomplicated; Z85.038 Personal history of other malignant neoplasm of large intestine; Z80.1 Family history of malignant neoplasm of trachea, bronchus and lung; Z83.3 Family history of diabetes mellitus
CPT/HCPCS: 36415; 80053; 81001; 83690; 83735; 85025; 87088; 96374; 97110; 97116; 97162; 97530; 99285; A4421; A4618; A7000; G0378; J0694; J1100; J1170; J2001; J2175; J2250; J2405; J2704; J2710; J3010; J3490; J7030; J7120

== ENCOUNTER 2019-05-27 16:16 | Emergency (ER) | payer MEDICAID ==
[~2019-05-27] VITALS: Ht 175.3 cm; Wt 75.0 kg
[~2019-05-27 16:16] MED LIST changes: -CIPR500T5 PO; -FLUO1VIA8 IV; -HYDR-3972 PO; +HYDR4TAB45 PO; +IBUP-1984 PO; +LEVO750T46 PO; +OXYC-511 PO; +OXYC10TA47
[2019-05-27 16:19] VITALS: BP 131/73
== END 2019-05-27 18:15 | disposition home or self-care (01) ==
LOC: ER 16:16
DX: K94.09 Other complications of colostomy (principal); J45.909 Unspecified asthma, uncomplicated; G89.29 Other chronic pain; F12.90 Cannabis use, unspecified, uncomplicated; Z86.73 Personal history of transient ischemic attack (TIA), and cerebral infarction without residual deficits; Z85.038 Personal history of other malignant neoplasm of large intestine; Z88.8 Allergy status to other drugs, medicaments and biological substances; Z88.5 Allergy status to narcotic agent; Z79.2 Long term (current) use of antibiotics
CPT/HCPCS: 99281

== ENCOUNTER 2019-05-27 21:49 | Emergency (ER) | payer MEDICAID ==
[~2019-05-27] VITALS: Ht 175.3 cm; Wt 80.0 kg
[2019-05-27 21:51] VITALS: BP 146/96
--- NOTE | 2019-05-28 00:19 | NUR ---
gave pt one ostomy bag, reapplied new bag, pt dc'd home
== END 2019-05-28 00:22 | disposition home or self-care (01) ==
LOC: ER 21:49
DX: Z43.3 Encounter for attention to colostomy (principal); J45.909 Unspecified asthma, uncomplicated; G89.29 Other chronic pain; F41.9 Anxiety disorder, unspecified; F31.9 Bipolar disorder, unspecified; F12.90 Cannabis use, unspecified, uncomplicated; Z85.038 Personal history of other malignant neoplasm of large intestine; Z86.73 Personal history of transient ischemic attack (TIA), and cerebral infarction without residual deficits; Z88.5 Allergy status to narcotic agent; Z88.8 Allergy status to other drugs, medicaments and biological substances; Z79.899 Other long term (current) drug therapy
CPT/HCPCS: 99281

== ENCOUNTER 2021-03-21 08:20 | Day surgery (SDC) | payer MEDICAID ==
[~2021-03-21] VITALS: Ht 175.3 cm; Wt 87.2 kg
[~2021-03-21 08:20] MED LIST changes: -OXYC-511 PO; +OXYC1TAB17 PO
[2021-03-21] MEDS ORDERED: LIDOcaine 1% 30ml preserv. free vial IJ STA (09:12)
[2021-03-21] MEDS ORDERED: normal saline 1000ml 1,000 ML IV PRN (09:15)
[2021-03-21 09:41] VITALS: BP 107/68
[2021-03-21] MEDS ORDERED: OXYC10TA47 PO (10:20)
[2021-03-21] MEDS ORDERED: cefazolin/dext.iso 2gm/50ml 50 ML IV ONE (10:40)
[2021-03-21] MEDS ORDERED: iohexol 300 MG/1 ML 50ml polymer ONE (11:11)
[2021-03-21] MEDS ORDERED: fentaNYL/PF 50MCG/1 ML 2ML syringe ONE ×2 (11:42→11:52)
[2021-03-21 12:15] VITALS: BP 118/75
[2021-03-21 12:30] VITALS: BP 114/66
[2021-03-21 12:45] VITALS: BP 110/51
[2021-03-21 13:00] VITALS: BP 106/50
== END 2021-03-21 13:25 | disposition home or self-care (01) ==
LOC: SSTAY O 08:20
PROVIDERS: ATTEND Radiology Diagnostic Radiology
DX: Z43.6 Encounter for attention to other artificial openings of urinary tract (principal); C19 Malignant neoplasm of rectosigmoid junction; J45.909 Unspecified asthma, uncomplicated; G89.29 Other chronic pain; F41.9 Anxiety disorder, unspecified; F31.9 Bipolar disorder, unspecified; F12.90 Cannabis use, unspecified, uncomplicated; Z88.8 Allergy status to other drugs, medicaments and biological substances; Z88.5 Allergy status to narcotic agent; Z79.899 Other long term (current) drug therapy; Z86.73 Personal history of transient ischemic attack (TIA), and cerebral infarction without residual deficits; Z72.89 Other problems related to lifestyle; Z80.1 Family history of malignant neoplasm of trachea, bronchus and lung; Z83.3 Family history of diabetes mellitus
CPT/HCPCS: 50435; 99152; C1729; C1769; J3010; Q9967; 50387; 99153

== ENCOUNTER 2021-04-17 10:31 | Day surgery (SDC) | payer MEDICAID ==
[~2021-04-17] VITALS: Ht 168.9 cm; Wt 80.6 kg
[~2021-04-17 10:31] MED LIST changes: -HYDR4TAB45 PO; -IBUP-1984 PO; -LEVO750T46 PO; -OXYC10TA47; +OXYC10TA47 PO; -OXYC1TAB17 PO
[2021-04-17] MEDS ORDERED: normal saline 1000ml 1,000 ML IV ONE (11:05)
[2021-04-17] MEDS ORDERED: MULT-227 PO (11:14)
[2021-04-17 11:20] VITALS: BP 113/96
[2021-04-17 11:40] LABS: BASOPHILS # (AUTO) 0.1 X10'3 (0-0.2); BASOPHILS % (AUTO) 0.1 % (0-1); EOSINOPHILS % (AUTO) 0 % (0-6); HEMATOCRIT 35.8 % (42.0-52.0); HEMOGLOBIN 11.7 g/dl (14.0-17.9); LYMPHOCYTES # (AUTO) 1.9 X10'3 (1.1-4.8); LYMPHOCYTES % (AUTO) 2.7 % (21-51); MEAN CORPUSCULAR HEMOGLOBIN 29.7 PG (27.0-31.0); MEAN CORPUSCULAR HGB CONC 32.6 g/dL (33.0-36.5); MEAN CORPUSCULAR VOLUME 90.9 FL (78-98); MEAN PLATELET VOLUME 7.6 FL (7.4-10.4); MONOCYTES # (AUTO) 0.2 X10'3 (0-0.9); MONOCYTES % (AUTO) 0.3 % (2-12); NEUTROPHILS # (AUTO) 67.7 X10'3 (1.8-7.7); NEUTROPHILS % (AUTO) 96.9 % (42-75); PLATELET COUNT 432 X10'3 (140-440); RED BLOOD COUNT 3.94 X10'6 (4.70-6.10); RED CELL DISTRIBUTION WIDTH 16.4 % (11.5-14.5)
[2021-04-17 11:48] LABS: WHITE BLOOD COUNT 69.8 X10'3 (4.5-11.0)
[2021-04-17] MEDS ORDERED: iohexol 300 MG/1 ML 50ml polymer ONE (12:42)
[2021-04-17] MEDS ORDERED: fentaNYL/PF 50MCG/1 ML 2ML syringe ONE (12:42)
[2021-04-17] MEDS ORDERED: midazolam 1 mg/ML 2ml injection ONE (12:42)
[2021-04-17] MEDS ORDERED: heparin sodium, porcine/PF 100unit/ml 5ML syringe ONE (13:13)
[2021-04-17 13:25] VITALS: BP 112/73
[2021-04-17 13:40] VITALS: BP 125/67
[2021-04-17 13:46] LABS: ANISOCYTOSIS 1+; PLATELET ESTIMATE NORMAL; TOTAL CELLS COUNTED 100
[2021-04-17 13:55] VITALS: BP 110/73
[2021-04-17 14:30] VITALS: BP 117/68
== END 2021-04-17 14:45 | disposition home or self-care (01) ==
LOC: SSTAY O 10:31
PROVIDERS: ATTEND Preventive Medicine Aerospace Medicine
DX: T82.598A Other mechanical complication of other cardiac and vascular devices and implants, initial encounter (principal); C20 Malignant neoplasm of rectum; Z20.822 Contact with and (suspected) exposure to COVID-19; Y83.8 Other surgical procedures as the cause of abnormal reaction of the patient, or of later complication, without mention of misadventure at the time of the procedure; Y92.89 Other specified places as the place of occurrence of the external cause
CPT/HCPCS: 36598; 85025; 87635; C9803; J1642; J2250; J3010; J7030; Q9967; 85007

== ENCOUNTER 2021-05-01 11:27 | Day surgery (SDC) | payer MEDICAID ==
[~2021-05-01] VITALS: Ht 168.9 cm; Wt 80.5 kg
[~2021-05-01 11:27] MED LIST changes: +MULT-227 PO
[2021-05-01] MEDS ORDERED: ceFAZolin/D5W- 1GM premix 50 ML IV ONE (11:35)
[2021-05-01 11:38] VITALS: BP 112/77
[2021-05-01] MEDS ORDERED: ACET325T55 PO (11:55)
[2021-05-01] MEDS ORDERED: normal saline 1000ml 1,000 ML IV SCH (12:00)
--- NOTE | 2021-05-01 13:22 | NUR ---
Dr. Pitt notified of positive covid
--- NOTE | 2021-05-01 14:20 | NUR ---
pt discharged in stable condition. all belongings sent home with pt. IR VINICIO Lopez educated pt on covid and flushed nephrostomy. pt will come back after covid isolation for the nephrostomy tube change. pt taken to private vehicle in wheelchair by VINICIO.
== END 2021-05-01 14:20 | disposition home or self-care (01) ==
LOC: SSTAY O 11:27
PROVIDERS: ATTEND Radiology Vascular & Interventional Radiology
DX: Z43.6 Encounter for attention to other artificial openings of urinary tract (principal); Z53.8 Procedure and treatment not carried out for other reasons; U07.1 COVID-19; Z88.8 Allergy status to other drugs, medicaments and biological substances; Z88.5 Allergy status to narcotic agent; Z79.899 Other long term (current) drug therapy; Z83.3 Family history of diabetes mellitus; Z80.1 Family history of malignant neoplasm of trachea, bronchus and lung
CPT/HCPCS: 87635; C9803